=== PATIENT | male | born 1945 | race Caucasian/White ===

== ENCOUNTER 2016-08-24 08:15 | Day surgery (SDC) | payer MEDICARE, OTHER ==
[~2016-08-24] VITALS: Ht 180.3 cm; Wt 113.0 kg
[~2016-08-24 08:15] MED LIST: 0.9% Sodium Chloride 1,000 ML IV SCH; ALLO300T2 PO; ASPI325T32 PO; HYDR50TA3 PO; LOSA100T3 PO; METO50TA3 PO; OMEP20CA11 PO; Sodium Chloride LOK Flush 10 mL Syringe IV PRN; fentaNYL-PF 50 mCg/mL 2 mL Inj IVPUSH PRN
[2016-08-24 09:12] VITALS: BP 154/91; PULSE 62; RESP 14; O2SAT 98
[2016-08-24 10:08] VITALS: BP 139/87; PULSE 60; RESP 17; O2SAT 93
[2016-08-24 10:17] VITALS: BP 131/82; PULSE 58; RESP 17; O2SAT 94
[2016-08-24 10:27] VITALS: BP 152/82; PULSE 58; RESP 17; O2SAT 94
--- NOTE | 2016-08-24 11:28 | ENDO ---
[address] [address] ENDOSCOPY PROCEDURE PATIENT: RADHA VAZQUEZ : 1945 MR#: [id number] ADMIT: 08/24/2016 JOB ID: [id number] PROCEDURE: Colonoscopy. INDICATION: Colon cancer screening. ANESTHESIA: The patient's ASA classification is two. Mallampati score is two. MEDICATIONS: 1. Versed 5 mg. 2. Fentanyl 100 mcg. INSTRUMENT USED: PCF H 180 AL. PREPARATION QUALITY: Good. PROCEDURE DETAILS: After informed consent was obtained, the patient was brought into the GI suite where he was placed on oxygen via nasal cannula and monitored with continuous pulse oximeter, telemetry, and blood pressure monitoring. A time-out was performed, then he was placed in the left lateral decubitus position and medications were administered for sedation. Digital rectal exam with palpation of the prostate was performed, which was unremarkable. The colonoscope was then inserted into the rectum and advanced under direct visualization to the terminal ileum which was identified by the presence of the ileocecal valve and the villous appearing mucosa of the terminal ileum. The terminal ileum was intubated as the patient had complaints of intermittent right upper quadrant pain. Once the terminal ileum was reached, the colonoscope was withdrawn back into the rectum as the mucosa and lumen were examined. In the rectum, retroflexion was performed. Following retroflexion, the remaining air in the rectum was suctioned, and the procedure was completed. FINDINGS: 1. In the transverse colon, there was one diminutive polyp that was removed with cold biopsy forceps. 2. There was a second transverse colon polyp that measured approximately 7 mm and that was sessile and was removed with a hot snare. 3. In the distal transverse colon, there were a focal area of erythema with exudate. I suspect this may have in the area of a diverticulum. We were able to remove the exudate with irrigation and biopsy forceps. 4. The surrounding mucosal erythema with edema was biopsied. 5. In the rectum there was a diminutive polyp that was removed with cold biopsy forceps. 6. Also, in the rectum there was an approximately 7-8 submucosal lesion that had a yellowish hue suggestive of a lipoma. This was probed with biopsy forceps and felt to be firm. Well biopsies were performed of the lesion. 7. Prominent anal skin tags were noted on retroflexion. IMPRESSION: 1. Two transverse colon polyps. 2. Suspect focal ulcer versus infected diverticulum in the transverse colon. 3. Rectal polyp. 4. Submucosal lesion. 5. Prominent anal papillae. RECOMMENDATIONS: 1. As the patient had no symptoms prior to exam suggest pain, fevers, chills, or sweats, I did not elect to give him antibiotics as this area of ulceration with erythema was seen. Clinically he is not acting as if he has diverticulitis. 2. Recommend that he avoid NSAIDs and anticoagulants for 72 hours. 3. Await biopsy results and polyp pathology results. 4. Follow up in GI Clinic in 2-4 weeks. COMPLICATIONS: None. ESTIMATED BLOOD LOSS: Less than 5 mL. CC: BURAK Yoon
--- NOTE | 2016-08-26 15:49 | PATH ---
SURGICAL PATHOLOGY Attending Physician:Marty Payne CASE STATUS: Signed Out PATIENT NAME: RADHA VAZQUEZ PID: [id number] : 1945 DATE COLLECTED:08/24/2016 19:08 SPECIMEN: 1: Colon, Biopsy 2: Colon, Biopsy 3: Rectum, Biopsy 4: Rectum, Biopsy CLINICAL HISTORY: 1: TRANSVERSE POLYP X2 2: TRANSVERSE BIOPSY 3: RECTAL POLYP X1 4: RECTAL SUBMUCOSAL LESION BIOPSY FINAL DIAGNOSIS: 1. Transverse Polyps x2: Hyperplastic polyps. 2. Transverse Biopsy: Benign colonic mucosa with erosion and patchy mild active inflammation. Negative for granulomas. Negative for dysplasia and malignancy. 3. Rectal Polyp x1: Hyperplastic polyp. 4. Rectal Submucosal Lesion Biopsy: Colonic mucosa with no diagnostic alterations, see comment. Negative for inflammation, dysplasia and malignancy. ICD10 K63.5; K52.9; K62.1 NOTE: Multiple microscopic levels of the rectal biopsy are examined, but no submucosal lesion is identified. It should be noted that there is limited submucosal tissue in the biopsy. GROSS DESCRIPTION: The specimen is received in four formalin filled containers labeled with the patient's name. 1). The specimen is labeled "#1 transverse polyp" and consists of 4 portions of tissue which aggregate to 0.6-0.5 x 0.4 CM. The specimen is entirely submitted in cassettes 1A. 2). The specimen is labeled "#2 transverse BX " and consists of a 0.4 x 0.3 x 0.3 CM portion of tissue. The specimen is entirely submitted in cassette 2A. 3). The specimen is sublabeled "rectal polyp" and consists of 2 portions of tissue which aggregate to 0.4 x 0.4 x 0.3 CM. The specimen is entirely submitted in cassettes 3A. 4). The specimen is sublabeled "rectal submucosa lesion" and consists of 3 tiny portions of tissue which aggregate to 0.3 x 0.3 x 0.2 CM. The specimen is entirely submitted in cassette 4A. 08/24/2016 DAC MICRO DESCRIPTION: Please see diagnosis. ICD-9 CODES: CPT CODES: 1: 83111 2: 93659 3: 28554 4: 85541 Electronically Signed Out Juany Asif MD [facility] [address] [place] [address] Division, [place] [address] Technical component performed at [facility], [address], [place], [address]
== END 2016-08-24 23:59 | disposition home or self-care (01) ==
LOC: END 08:15
PROVIDERS: ATTEND Internal Medicine Gastroenterology
DX: Z12.11 Encounter for screening for malignant neoplasm of colon (principal); K63.5 Polyp of colon; K62.1 Rectal polyp; K62.89 Other specified diseases of anus and rectum; N40.1 Benign prostatic hyperplasia with lower urinary tract symptoms; Z87.891 Personal history of nicotine dependence
CPT/HCPCS: 45380; 45385; 99153; G0500; J2250; J3010; J7030